=== PATIENT | female | born 1955 | race African-American/Black ===

== ENCOUNTER 2021-07-15 23:51 | Inpatient (IN) ==
[2021-07-16] MEDS ORDERED: SODIUM CHLORIDE 0.9% 1,000 ML IV STA (00:48)
[2021-07-16] MEDS ORDERED: GLUCAGON 1 MG VIAL IM PRN (01:18)
[2021-07-16] MEDS ORDERED: DEXTROSE 50% 25 GM/50 ML VIAL IV PRN ×2 (01:18→01:23)
[2021-07-16 01:29] LABS: Basophils % 0.2 % (0.0-0.8); Hematocrit 28.5 VOL% (35.7-47.0); Immature Granulocytes % 1.3 %; Immature Granulocytes Absolute 0.26 #; Lymphocytes # 1.3 10*3/uL (1.4-4.0); Lymphocytes % 6.4 % (21.3-54.2); Mean Corpuscular HGB Conc 31.6 GM/DL (32-36); Mean Corpuscular Volume 78.5 FL (87-102); Mean Platelet Volume 10.2 FL (9.6-12.0); Monocytes % 7.7 % (1.7-12.7); Neutrophils % 84.4 % (38.7-73.9); Platelet Count 314 T/CUMM (130-400); Red Blood Count 3.63 MC/CUMM (3.8-5.5); Red Cell Distribution Width 17.2 % (9.3-17.3); White Blood Count 20.6 T/CUMM (4-12)
[2021-07-16 01:47] LABS: Albumin 1.6 G/DL (3.4-5.0); Bilirubin,Total 0.6 MG/DL (0.20-1.00); Calcium 9.4 MG/DL (8.5-10.1); Osmolality,Calculated 318.8 MOS/KG (273-304); Potassium 4.3 MMOL/L (3.5-5.1); Total Protein 7.4 G/DL (6.4-8.2)
[2021-07-16 01:59] LABS: Hypochromasia Slight; Lymphocytes 8 % (20-55); Microcytosis 1+; Platelet Estimate Normal; Segmented Neutrophils 86 % (50-85); Total Cells Counted 100
[2021-07-16] MEDS: SODIUM CHLORIDE 0.9% 1,000 ML IV SCH ×2 (02:30→11:40)
[2021-07-16] MEDS ORDERED: VANCOMYCIN INJ 1,750 MG in SODIUM CHLORIDE 0.9% 500 ML IV PRN (02:51)
[2021-07-16] MEDS ORDERED: VANCOMYCIN INJ 1,000 MG in SODIUM CHLORIDE 0.9% 250 ML IV SCH (03:00)
[2021-07-16] MEDS ORDERED: VANCOMYCIN INJ 2,500 MG in SODIUM CHLORIDE 0.9% 500 ML IV ONE (04:00)
[2021-07-16] MEDS: PIPERACILLIN/TAZOBACTAM 3,375 MG in SODIUM CHLORIDE 0.9% 100 ML IV SCH ×2 (07:24→17:30)
[2021-07-16] MEDS: INSULIN REGULAR 100 UNIT/ML SUBCUT SCH ×4 (07:35→20:10)
[2021-07-16 09:22] LABS: Basophils % 0.2 % (0.0-0.8); Eosinophils # 0.1 10*3/uL (0.0-0.87); Eosinophils % 0.4 % (0.00-10.9); Hematocrit 28.5 VOL% (35.7-47.0); Hemoglobin 9.1 GM/DL (12.0-16.0); Immature Granulocytes % 1.6 %; Immature Granulocytes Absolute 0.29 #; Lymphocytes # 1.6 10*3/uL (1.4-4.0); Lymphocytes % 8.5 % (21.3-54.2); Mean Corpuscular HGB Conc 31.9 GM/DL (32-36); Mean Corpuscular Volume 78.5 FL (87-102); Monocytes % 10.4 % (1.7-12.7); Neutrophils % 78.9 % (38.7-73.9); Platelet Count 242 T/CUMM (130-400); Red Blood Count 3.63 MC/CUMM (3.8-5.5); Red Cell Distribution Width 17.1 % (9.3-17.3); White Blood Count 18.7 T/CUMM (4-12)
[2021-07-16] MEDS: ZINC GLUCONATE 50 MG TABLET PO SCH (09:30)
[2021-07-16] MEDS: CHOLECALCIFEROL 1,000 UNIT TABLET PO SCH (09:30)
[2021-07-16] MEDS: FAMOTIDINE 20 MG TABLET PO SCH ×2 (09:30→20:10)
[2021-07-16] MEDS: ASCORBIC ACID 500 MG TABLET PO SCH ×2 (09:30→20:10)
[2021-07-16] MEDS: CETIRIZINE 10 MG TABLET PO SCH (09:30)
[2021-07-16] MEDS ORDERED: TUBERCULIN SKIN TEST 0.1 ML SYRINGE INTRADERM ONE (10:54)
[2021-07-16] MEDS: DESITIN 4OZ/NYSTATIN 15 GRAM MIXTURE PASTE TOP SCH ×2 (13:34→20:10)
[2021-07-16 14:29] LABS: Ferritin 307.2 ng/mL (8-252)
[2021-07-16] MEDS: ENOXAPARIN 30 MG/0.3 ML SYRINGE SUBCUT SCH (17:29)
[2021-07-17] MEDS: MORPHINE 2 MG/1 ML SYRINGE IV PRN (02:06)
[2021-07-17] MEDS: PIPERACILLIN/TAZOBACTAM 3,375 MG in SODIUM CHLORIDE 0.9% 100 ML IV SCH ×2 (04:00→17:53)
[2021-07-17] MEDS: SODIUM CHLORIDE 0.9% 1,000 ML IV SCH ×2 (04:00→08:40)
[2021-07-17 05:17] LABS: Basophils % 0.2 % (0.0-0.8); Eosinophils # 0.3 10*3/uL (0.0-0.87); Eosinophils % 2.4 % (0.00-10.9); Hematocrit 23.8 VOL% (35.7-47.0); Hemoglobin 7.7 GM/DL (12.0-16.0); Immature Granulocytes % 2.1 %; Immature Granulocytes Absolute 0.25 #; Lymphocytes # 1.2 10*3/uL (1.4-4.0); Lymphocytes % 9.9 % (21.3-54.2); Mean Corpuscular HGB Conc 32.4 GM/DL (32-36); Mean Corpuscular Volume 78.3 FL (87-102); Mean Platelet Volume 10.1 FL (9.6-12.0); Monocytes % 8.7 % (1.7-12.7); Neutrophils % 76.7 % (38.7-73.9); Platelet Count 267 T/CUMM (130-400); Red Blood Count 3.04 MC/CUMM (3.8-5.5); Red Cell Distribution Width 17.2 % (9.3-17.3); White Blood Count 11.8 T/CUMM (4-12)
[2021-07-17] MEDS: INSULIN REGULAR 100 UNIT/ML SUBCUT SCH ×4 (07:24→20:18)
[2021-07-17] MEDS ORDERED: VANCOMYCIN INJ 1,750 MG in SODIUM CHLORIDE 0.9% 500 ML IV PRN (07:50)
[2021-07-17] MEDS: ZINC GLUCONATE 50 MG TABLET PO SCH (08:41)
[2021-07-17] MEDS: FAMOTIDINE 20 MG TABLET PO SCH ×2 (08:41→20:18)
[2021-07-17] MEDS: CHOLECALCIFEROL 1,000 UNIT TABLET PO SCH (08:41)
[2021-07-17] MEDS: ASCORBIC ACID 500 MG TABLET PO SCH ×2 (08:41→20:18)
[2021-07-17] MEDS: CETIRIZINE 10 MG TABLET PO SCH (08:41)
[2021-07-17] MEDS: DESITIN 4OZ/NYSTATIN 15 GRAM MIXTURE PASTE TOP SCH ×2 (08:41→20:18)
[2021-07-17] MEDS ORDERED: ACETAMINOPHEN 325 MG TABLET PO PRN (08:42)
[2021-07-17] MEDS ORDERED: MECLIZINE 25 MG TABLET PO PRN (08:42)
[2021-07-17] MEDS ORDERED: ONDANSETRON 4 MG/2 ML VIAL IV PRN (08:42)
[2021-07-17] MEDS ORDERED: diphenhydrAMINE 50 MG/1 ML VIAL IV PRN ×2 (08:42)
[2021-07-17] MEDS ORDERED: methylPREDNISolone SOD SUC 125 MG/2 ML VIAL IV PRN (08:42)
[2021-07-17 08:55] LABS: Albumin 1.3 G/DL (3.4-5.0); Bilirubin,Total 0.4 MG/DL (0.20-1.00); Calcium 8.2 MG/DL (8.5-10.1); Osmolality,Calculated 307.3 MOS/KG (273-304); Potassium 3.7 MMOL/L (3.5-5.1); Total Protein 6.4 G/DL (6.4-8.2)
[2021-07-17] MEDS ORDERED: CASIRIVIMAB/IMDEVIMAB 1,200 MG in SODIUM CHLORIDE 0.9% 100 ML IV ONE (09:00)
[2021-07-17 10:50] LABS: Amorphous Crystals,Urine Occasional /HPF (Few); Bilirubin,Urine Negative (Negative); Blood, Urine Negative (Negative); Glucose,Urine (UA) Negative (Negative); Ketones,Urine Negative (Negative); Nitrite,Urine Negative (Negative); Protein,Urine Negative; RBC,Urine <1 /HPF (0-4); Uric Acid Crystals,Urine Occasional /HPF (<1); Urine Appearance Slightly Hazy (Clear); Urine Color Yellow (Yellow); Urine Specific Gravity 1.014 (1.001-1.035); Urine Urobilinogen < 2.0 EU/DL (0.2-1.0)
[2021-07-17 11:30] LABS: Creatinine,Urine Random 50 MG/DL; Total Protein,Urine Random 55 MG/DL
[2021-07-17] MEDS: SODIUM BICARB INJ 50 MEQ in SODIUM CHLORIDE 0.45% 1,000 ML IV SCH (12:39)
[2021-07-17] MEDS: ENOXAPARIN 30 MG/0.3 ML SYRINGE SUBCUT SCH (17:52)
[2021-07-18] MEDS: SODIUM BICARB INJ 50 MEQ in SODIUM CHLORIDE 0.45% 1,000 ML IV SCH ×3 (03:54→21:10)
[2021-07-18] MEDS: PIPERACILLIN/TAZOBACTAM 3,375 MG in SODIUM CHLORIDE 0.9% 100 ML IV SCH ×3 (04:13→17:10)
[2021-07-18] MEDS ORDERED: VANCOMYCIN INJ 1,750 MG in SODIUM CHLORIDE 0.9% 500 ML IV ONE ×2 (05:00→10:00)
[2021-07-18 06:48] LABS: Basophils % 0.4 % (0.0-0.8); Eosinophils # 0.3 10*3/uL (0.0-0.87); Eosinophils % 3.3 % (0.00-10.9); Hemoglobin 7.3 GM/DL (12.0-16.0); Immature Granulocytes % 4.5 %; Immature Granulocytes Absolute 0.41 #; Lymphocytes # 1.4 10*3/uL (1.4-4.0); Mean Corpuscular HGB Conc 31.7 GM/DL (32-36); Mean Corpuscular Volume 79.6 FL (87-102); Monocytes % 9.5 % (1.7-12.7); Neutrophils % 67.3 % (38.7-73.9); Platelet Count 273 T/CUMM (130-400); Red Blood Count 2.89 MC/CUMM (3.8-5.5); Red Cell Distribution Width 17.6 % (9.3-17.3)
[2021-07-18 07:04] LABS: Calcium 7.5 MG/DL (8.5-10.1); Osmolality,Calculated 310.7 MOS/KG (273-304); Potassium 3.6 MMOL/L (3.5-5.1)
[2021-07-18 07:08] LABS: % Iron Saturation 19.6 % (18-50)
[2021-07-18] MEDS: INSULIN REGULAR 100 UNIT/ML SUBCUT SCH ×4 (07:30→20:31)
[2021-07-18] MEDS: ASCORBIC ACID 500 MG TABLET PO SCH ×2 (09:35→20:30)
[2021-07-18] MEDS: CETIRIZINE 10 MG TABLET PO SCH (09:35)
[2021-07-18] MEDS: CHOLECALCIFEROL 1,000 UNIT TABLET PO SCH (09:35)
[2021-07-18] MEDS: ZINC GLUCONATE 50 MG TABLET PO SCH (09:35)
[2021-07-18] MEDS: FAMOTIDINE 20 MG TABLET PO SCH ×2 (09:35→20:29)
[2021-07-18] MEDS: DESITIN 4OZ/NYSTATIN 15 GRAM MIXTURE PASTE TOP SCH ×2 (09:36→20:32)
[2021-07-18] MEDS ORDERED: SODIUM CHLORIDE 0.9% 1,000 ML IV PRN (09:45)
[2021-07-18] MEDS: MORPHINE 2 MG/1 ML SYRINGE IV PRN (14:47)
[2021-07-18] MEDS: ENOXAPARIN 30 MG/0.3 ML SYRINGE SUBCUT SCH (16:21)
[2021-07-19] MEDS: SODIUM BICARB INJ 50 MEQ in SODIUM CHLORIDE 0.45% 1,000 ML IV SCH ×3 (04:21→16:49)
[2021-07-19] MEDS: PIPERACILLIN/TAZOBACTAM 3,375 MG in SODIUM CHLORIDE 0.9% 100 ML IV SCH ×2 (04:22→16:38)
[2021-07-19] MEDS: MORPHINE 2 MG/1 ML SYRINGE IV PRN ×2 (04:50→14:30)
[2021-07-19 05:44] LABS: Basophils % 0.3 % (0.0-0.8); Eosinophils # 0.4 10*3/uL (0.0-0.87); Eosinophils % 3.4 % (0.00-10.9); Hematocrit 25.8 VOL% (35.7-47.0); Hemoglobin 8.2 GM/DL (12.0-16.0); Immature Granulocytes % 4.3 %; Immature Granulocytes Absolute 0.44 #; Lymphocytes # 1.9 10*3/uL (1.4-4.0); Lymphocytes % 18.4 % (21.3-54.2); Mean Corpuscular HGB Conc 31.8 GM/DL (32-36); Mean Corpuscular Volume 80.6 FL (87-102); Mean Platelet Volume 9.5 FL (9.6-12.0); Neutrophils % 63.6 % (38.7-73.9); Platelet Count 260 T/CUMM (130-400); Red Cell Distribution Width 17.3 % (9.3-17.3); White Blood Count 10.3 T/CUMM (4-12)
[2021-07-19 06:02] LABS: Calcium 7.3 MG/DL (8.5-10.1); Potassium 3.1 MMOL/L (3.5-5.1)
[2021-07-19] MEDS ORDERED: MAGNESIUM SULF RIDER 2 GM/50 ML PREMIX IV PRN (07:47)
[2021-07-19] MEDS: INSULIN REGULAR 100 UNIT/ML SUBCUT SCH ×4 (07:49→20:43)
[2021-07-19] MEDS: CETIRIZINE 10 MG TABLET PO SCH (08:36)
[2021-07-19] MEDS: CHOLECALCIFEROL 1,000 UNIT TABLET PO SCH (08:36)
[2021-07-19] MEDS: DESITIN 4OZ/NYSTATIN 15 GRAM MIXTURE PASTE TOP SCH ×2 (08:36→20:43)
[2021-07-19] MEDS: ASCORBIC ACID 500 MG TABLET PO SCH ×2 (08:36→20:43)
[2021-07-19] MEDS: ZINC GLUCONATE 50 MG TABLET PO SCH (08:36)
[2021-07-19] MEDS: FAMOTIDINE 20 MG TABLET PO SCH ×2 (08:36→20:43)
[2021-07-19] MEDS: ENOXAPARIN 30 MG/0.3 ML SYRINGE SUBCUT SCH (16:38)
[2021-07-19] MEDS: POTASSIUM CHLORIDE RIDER 10 MEQ/100 ML PREMIX IV PRN ×2 (20:54→23:52)
[2021-07-20] MEDS: POTASSIUM CHLORIDE RIDER 10 MEQ/100 ML PREMIX IV PRN (01:01)
[2021-07-20] MEDS: SODIUM BICARB INJ 50 MEQ in SODIUM CHLORIDE 0.45% 1,000 ML IV SCH ×3 (01:30→22:30)
[2021-07-20] MEDS: MAGNESIUM SULF RIDER 4 GM/100 ML PREMIX IV PRN (02:31)
[2021-07-20 06:27] LABS: Basophils % 0.3 % (0.0-0.8); Eosinophils # 0.4 10*3/uL (0.0-0.87); Eosinophils % 3.4 % (0.00-10.9); Hematocrit 26.5 VOL% (35.7-47.0); Hemoglobin 8.2 GM/DL (12.0-16.0); Immature Granulocytes % 4.4 %; Immature Granulocytes Absolute 0.47 #; Lymphocytes # 2.1 10*3/uL (1.4-4.0); Lymphocytes % 19.3 % (21.3-54.2); Mean Corpuscular HGB Conc 30.9 GM/DL (32-36); Mean Corpuscular Volume 81.5 FL (87-102); Mean Platelet Volume 9.2 FL (9.6-12.0); Monocytes % 10.1 % (1.7-12.7); Neutrophils % 62.5 % (38.7-73.9); Platelet Count 252 T/CUMM (130-400); Red Blood Count 3.25 MC/CUMM (3.8-5.5); Red Cell Distribution Width 17.3 % (9.3-17.3); White Blood Count 10.7 T/CUMM (4-12)
[2021-07-20 06:38] LABS: Calcium 7.5 MG/DL (8.5-10.1); Osmolality,Calculated 285.3 MOS/KG (273-304); Potassium 3.9 MMOL/L (3.5-5.1)
[2021-07-20] MEDS: PIPERACILLIN/TAZOBACTAM 3,375 MG in SODIUM CHLORIDE 0.9% 100 ML IV SCH (07:03)
[2021-07-20] MEDS: INSULIN REGULAR 100 UNIT/ML SUBCUT SCH ×4 (07:52→20:25)
[2021-07-20] MEDS: FAMOTIDINE 20 MG TABLET PO SCH ×2 (09:35→20:24)
[2021-07-20] MEDS: CETIRIZINE 10 MG TABLET PO SCH (09:35)
[2021-07-20] MEDS: DESITIN 4OZ/NYSTATIN 15 GRAM MIXTURE PASTE TOP SCH ×2 (09:35→20:25)
[2021-07-20] MEDS: CHOLECALCIFEROL 1,000 UNIT TABLET PO SCH (09:35)
[2021-07-20] MEDS: ASCORBIC ACID 500 MG TABLET PO SCH ×2 (09:35→20:24)
[2021-07-20] MEDS: ZINC GLUCONATE 50 MG TABLET PO SCH (09:35)
[2021-07-20] MEDS: MORPHINE 2 MG/1 ML SYRINGE IV PRN (15:01)
[2021-07-20] MEDS: LEVOFLOXACIN 500 MG TABLET PO SCH (15:01)
[2021-07-20] MEDS: ENOXAPARIN 30 MG/0.3 ML SYRINGE SUBCUT SCH (16:14)
[2021-07-20] MEDS ORDERED: PIPERACILLIN/TAZOBACTAM 3,375 MG in SODIUM CHLORIDE 0.9% 100 ML IV SCH (17:00)
[2021-07-20] MEDS ORDERED: VANCOMYCIN INJ 1,750 MG in SODIUM CHLORIDE 0.9% 500 ML IV SCH (21:00)
[2021-07-21 07:15] LABS: Basophils % 0.3 % (0.0-0.8); Eosinophils # 0.3 10*3/uL (0.0-0.87); Eosinophils % 3.2 % (0.00-10.9); Hematocrit 28.1 VOL% (35.7-47.0); Hemoglobin 8.6 GM/DL (12.0-16.0); Immature Granulocytes % 5.3 %; Lymphocytes # 2.4 10*3/uL (1.4-4.0); Lymphocytes % 25.8 % (21.3-54.2); Mean Corpuscular HGB Conc 30.6 GM/DL (32-36); Mean Corpuscular Volume 83.1 FL (87-102); Mean Platelet Volume 9.3 FL (9.6-12.0); Monocytes % 11.3 % (1.7-12.7); NRBC # 0.02 10*3/uL; Neutrophils % 54.1 % (38.7-73.9); Platelet Count 255 T/CUMM (130-400); Red Blood Count 3.38 MC/CUMM (3.8-5.5); Red Cell Distribution Width 17.6 % (9.3-17.3); White Blood Count 9.4 T/CUMM (4-12)
[2021-07-21 07:42] LABS: Calcium 7.6 MG/DL (8.5-10.1); Osmolality,Calculated 280.5 MOS/KG (273-304); Potassium 3.8 MMOL/L (3.5-5.1)
[2021-07-21] MEDS: INSULIN REGULAR 100 UNIT/ML SUBCUT SCH ×4 (07:51→20:19)
[2021-07-21 07:57] LABS: Band Neutrophils 2 % (0-10); Eosinophils 1 % (0-10); Hypochromasia 1+; Lymphocytes 30 % (20-55); Microcytosis 1+; Segmented Neutrophils 61 % (50-85); Total Cells Counted 100
[2021-07-21 07:58] LABS: Platelet Estimate Normal; Target Cells Slight
[2021-07-21] MEDS: FAMOTIDINE 20 MG TABLET PO SCH ×2 (08:40→20:19)
[2021-07-21] MEDS: CHOLECALCIFEROL 1,000 UNIT TABLET PO SCH (08:40)
[2021-07-21] MEDS: LEVOFLOXACIN 500 MG TABLET PO SCH (08:40)
[2021-07-21] MEDS: ASCORBIC ACID 500 MG TABLET PO SCH ×2 (08:40→20:19)
[2021-07-21] MEDS: CETIRIZINE 10 MG TABLET PO SCH (08:40)
[2021-07-21] MEDS: ZINC GLUCONATE 50 MG TABLET PO SCH (08:41)
[2021-07-21] MEDS: SODIUM BICARB INJ 50 MEQ in SODIUM CHLORIDE 0.45% 1,000 ML IV SCH (08:41)
[2021-07-21] MEDS: DESITIN 4OZ/NYSTATIN 15 GRAM MIXTURE PASTE TOP SCH ×2 (08:41→20:19)
[2021-07-21] MEDS: MORPHINE 2 MG/1 ML SYRINGE IV PRN (14:30)
[2021-07-21] MEDS: ENOXAPARIN 30 MG/0.3 ML SYRINGE SUBCUT SCH (15:56)
[2021-07-22] MEDS: ASCORBIC ACID 500 MG TABLET PO SCH ×2 (09:06→20:15)
[2021-07-22] MEDS: FAMOTIDINE 20 MG TABLET PO SCH ×2 (09:07→20:15)
[2021-07-22] MEDS: LEVOFLOXACIN 500 MG TABLET PO SCH (09:07)
[2021-07-22] MEDS: CHOLECALCIFEROL 1,000 UNIT TABLET PO SCH (09:07)
[2021-07-22] MEDS: ZINC GLUCONATE 50 MG TABLET PO SCH (09:07)
[2021-07-22] MEDS: CETIRIZINE 10 MG TABLET PO SCH (09:07)
[2021-07-22] MEDS: INSULIN REGULAR 100 UNIT/ML SUBCUT SCH ×4 (09:08→20:15)
[2021-07-22] MEDS: DESITIN 4OZ/NYSTATIN 15 GRAM MIXTURE PASTE TOP SCH ×2 (12:18→20:15)
[2021-07-22] MEDS: MORPHINE 2 MG/1 ML SYRINGE IV PRN (14:38)
[2021-07-22] MEDS: ENOXAPARIN 30 MG/0.3 ML SYRINGE SUBCUT SCH (18:47)
[2021-07-23 05:53] LABS: Basophils % 0.4 % (0.0-0.8); Eosinophils # 0.3 10*3/uL (0.0-0.87); Eosinophils % 3.5 % (0.00-10.9); Hematocrit 25.9 VOL% (35.7-47.0); Hemoglobin 8.1 GM/DL (12.0-16.0); Immature Granulocytes % 3.6 %; Immature Granulocytes Absolute 0.29 #; Mean Corpuscular HGB Conc 31.3 GM/DL (32-36); Mean Corpuscular Volume 81.7 FL (87-102); Mean Platelet Volume 9.5 FL (9.6-12.0); Monocytes % 11.1 % (1.7-12.7); Neutrophils % 56.4 % (38.7-73.9); Platelet Count 238 T/CUMM (130-400); Red Blood Count 3.17 MC/CUMM (3.8-5.5); Red Cell Distribution Width 17.5 % (9.3-17.3)
[2021-07-23 06:14] LABS: Calcium 7.7 MG/DL (8.5-10.1); Osmolality,Calculated 285.1 MOS/KG (273-304); Potassium 3.6 MMOL/L (3.5-5.1)
[2021-07-23] MEDS: INSULIN REGULAR 100 UNIT/ML SUBCUT SCH ×4 (07:14→20:48)
[2021-07-23] MEDS: MORPHINE 2 MG/1 ML SYRINGE IV PRN (08:30)
[2021-07-23] MEDS: DESITIN 4OZ/NYSTATIN 15 GRAM MIXTURE PASTE TOP SCH ×2 (08:30→20:48)
[2021-07-23] MEDS: LEVOFLOXACIN 500 MG TABLET PO SCH (08:30)
[2021-07-23] MEDS: FAMOTIDINE 20 MG TABLET PO SCH ×2 (08:30→20:48)
[2021-07-23] MEDS: ASCORBIC ACID 500 MG TABLET PO SCH ×2 (08:30→20:48)
[2021-07-23] MEDS: ZINC GLUCONATE 50 MG TABLET PO SCH (08:31)
[2021-07-23] MEDS: CHOLECALCIFEROL 1,000 UNIT TABLET PO SCH (08:31)
[2021-07-23] MEDS: CETIRIZINE 10 MG TABLET PO SCH (08:31)
[2021-07-23] MEDS: ENOXAPARIN 30 MG/0.3 ML SYRINGE SUBCUT SCH (17:06)
[2021-07-24 05:09] LABS: Basophils % 0.4 % (0.0-0.8); Eosinophils # 0.3 10*3/uL (0.0-0.87); Eosinophils % 3.3 % (0.00-10.9); Hematocrit 27.4 VOL% (35.7-47.0); Hemoglobin 8.6 GM/DL (12.0-16.0); Immature Granulocytes % 2.1 %; Immature Granulocytes Absolute 0.17 #; Lymphocytes # 1.7 10*3/uL (1.4-4.0); Lymphocytes % 21.4 % (21.3-54.2); Mean Corpuscular HGB Conc 31.4 GM/DL (32-36); Mean Corpuscular Volume 81.5 FL (87-102); Mean Platelet Volume 9.3 FL (9.6-12.0); Monocytes % 9.4 % (1.7-12.7); Neutrophils % 63.4 % (38.7-73.9); Platelet Count 237 T/CUMM (130-400); Red Blood Count 3.36 MC/CUMM (3.8-5.5); White Blood Count 8.1 T/CUMM (4-12)
[2021-07-24 05:35] LABS: Calcium 7.7 MG/DL (8.5-10.1); Osmolality,Calculated 280.3 MOS/KG (273-304); Potassium 3.4 MMOL/L (3.5-5.1)
[2021-07-24] MEDS: POTASSIUM CHLORIDE RIDER 10 MEQ/100 ML PREMIX IV PRN ×3 (06:35→10:39)
[2021-07-24] MEDS: INSULIN REGULAR 100 UNIT/ML SUBCUT SCH ×4 (07:12→20:15)
[2021-07-24] MEDS: FAMOTIDINE 20 MG TABLET PO SCH ×2 (09:08→20:15)
[2021-07-24] MEDS: ASCORBIC ACID 500 MG TABLET PO SCH ×2 (09:08→20:15)
[2021-07-24] MEDS: DESITIN 4OZ/NYSTATIN 15 GRAM MIXTURE PASTE TOP SCH ×2 (09:08→20:15)
[2021-07-24] MEDS: LEVOFLOXACIN 500 MG TABLET PO SCH (09:08)
[2021-07-24] MEDS: ZINC GLUCONATE 50 MG TABLET PO SCH (09:09)
[2021-07-24] MEDS: CHOLECALCIFEROL 1,000 UNIT TABLET PO SCH (09:09)
[2021-07-24] MEDS: CETIRIZINE 10 MG TABLET PO SCH (09:09)
[2021-07-24] MEDS: MORPHINE 2 MG/1 ML SYRINGE IV PRN (15:00)
[2021-07-24] MEDS: ENOXAPARIN 30 MG/0.3 ML SYRINGE SUBCUT SCH (17:28)
[2021-07-25] MEDS: INSULIN REGULAR 100 UNIT/ML SUBCUT SCH ×4 (07:33→20:16)
[2021-07-25] MEDS: FAMOTIDINE 20 MG TABLET PO SCH ×2 (09:00→20:17)
[2021-07-25] MEDS: ZINC GLUCONATE 50 MG TABLET PO SCH (09:00)
[2021-07-25] MEDS: ASCORBIC ACID 500 MG TABLET PO SCH ×2 (09:00→20:17)
[2021-07-25] MEDS: LEVOFLOXACIN 500 MG TABLET PO SCH (09:01)
[2021-07-25] MEDS: CETIRIZINE 10 MG TABLET PO SCH (09:01)
[2021-07-25] MEDS: CHOLECALCIFEROL 1,000 UNIT TABLET PO SCH (09:01)
[2021-07-25] MEDS: DESITIN 4OZ/NYSTATIN 15 GRAM MIXTURE PASTE TOP SCH ×2 (09:01→20:17)
[2021-07-25] MEDS: ENOXAPARIN 30 MG/0.3 ML SYRINGE SUBCUT SCH (16:05)
[2021-07-26 04:40] LABS: Basophils % 0.4 % (0.0-0.8); Eosinophils # 0.3 10*3/uL (0.0-0.87); Eosinophils % 2.7 % (0.00-10.9); Hematocrit 25.6 VOL% (35.7-47.0); Hemoglobin 8.1 GM/DL (12.0-16.0); Immature Granulocytes % 0.7 %; Immature Granulocytes Absolute 0.07 #; Lymphocytes # 2.3 10*3/uL (1.4-4.0); Lymphocytes % 22.4 % (21.3-54.2); Mean Corpuscular HGB Conc 31.6 GM/DL (32-36); Mean Corpuscular Volume 81.5 FL (87-102); Mean Platelet Volume 9.1 FL (9.6-12.0); Monocytes % 10.4 % (1.7-12.7); Neutrophils % 63.4 % (38.7-73.9); Platelet Count 256 T/CUMM (130-400); Red Blood Count 3.14 MC/CUMM (3.8-5.5); Red Cell Distribution Width 18.1 % (9.3-17.3); White Blood Count 10.2 T/CUMM (4-12)
[2021-07-26 05:16] LABS: Calcium 7.7 MG/DL (8.5-10.1); Osmolality,Calculated 279.5 MOS/KG (273-304); Potassium 3.2 MMOL/L (3.5-5.1)
[2021-07-26] MEDS: MAGNESIUM SULF RIDER 4 GM/100 ML PREMIX IV PRN (05:30)
[2021-07-26] MEDS: POTASSIUM CHLORIDE 20 MEQ TABLET PO PRN ×4 (05:48→11:58)
[2021-07-26] MEDS: INSULIN REGULAR 100 UNIT/ML SUBCUT SCH ×4 (07:30→20:03)
[2021-07-26] MEDS: ASCORBIC ACID 500 MG TABLET PO SCH ×2 (08:05→20:03)
[2021-07-26] MEDS: CHOLECALCIFEROL 1,000 UNIT TABLET PO SCH (08:05)
[2021-07-26] MEDS: ZINC GLUCONATE 50 MG TABLET PO SCH (08:05)
[2021-07-26] MEDS: LEVOFLOXACIN 500 MG TABLET PO SCH (08:05)
[2021-07-26] MEDS: CETIRIZINE 10 MG TABLET PO SCH (08:06)
[2021-07-26] MEDS: FAMOTIDINE 20 MG TABLET PO SCH ×2 (08:06→20:03)
[2021-07-26] MEDS: DESITIN 4OZ/NYSTATIN 15 GRAM MIXTURE PASTE TOP SCH ×2 (08:07→20:03)
[2021-07-26] MEDS: ENOXAPARIN 30 MG/0.3 ML SYRINGE SUBCUT SCH (16:00)
[2021-07-26 17:23] LABS: Calcium 7.9 MG/DL (8.5-10.1); Osmolality,Calculated 277.7 MOS/KG (273-304)
[2021-07-27 04:19] LABS: Basophils % 0.2 % (0.0-0.8); Eosinophils # 0.3 10*3/uL (0.0-0.87); Hematocrit 27.2 VOL% (35.7-47.0); Hemoglobin 8.2 GM/DL (12.0-16.0); Immature Granulocytes % 0.9 %; Immature Granulocytes Absolute 0.08 #; Lymphocytes # 1.9 10*3/uL (1.4-4.0); Lymphocytes % 21.9 % (21.3-54.2); Mean Corpuscular HGB Conc 30.1 GM/DL (32-36); Mean Corpuscular Volume 82.7 FL (87-102); Monocytes % 11.8 % (1.7-12.7); Neutrophils % 62.2 % (38.7-73.9); Platelet Count 271 T/CUMM (130-400); Red Blood Count 3.29 MC/CUMM (3.8-5.5); Red Cell Distribution Width 18.1 % (9.3-17.3); White Blood Count 8.7 T/CUMM (4-12)
[2021-07-27] MEDS: INSULIN REGULAR 100 UNIT/ML SUBCUT SCH ×4 (07:34→21:15)
[2021-07-27] MEDS: ZINC GLUCONATE 50 MG TABLET PO SCH (08:50)
[2021-07-27] MEDS: DESITIN 4OZ/NYSTATIN 15 GRAM MIXTURE PASTE TOP SCH ×2 (08:50→21:16)
[2021-07-27] MEDS: CHOLECALCIFEROL 1,000 UNIT TABLET PO SCH (08:50)
[2021-07-27] MEDS: LEVOFLOXACIN 500 MG TABLET PO SCH (08:50)
[2021-07-27] MEDS: CETIRIZINE 10 MG TABLET PO SCH (08:50)
[2021-07-27] MEDS: ASCORBIC ACID 500 MG TABLET PO SCH ×2 (08:50→21:16)
[2021-07-27] MEDS: FAMOTIDINE 20 MG TABLET PO SCH ×2 (08:50→21:16)
[2021-07-27] MEDS: ENOXAPARIN 30 MG/0.3 ML SYRINGE SUBCUT SCH (16:18)
[2021-07-27] MEDS: MORPHINE 2 MG/1 ML SYRINGE IV PRN (16:18)
[2021-07-28 06:15] LABS: Basophils % 0.4 % (0.0-0.8); Eosinophils # 0.2 10*3/uL (0.0-0.87); Eosinophils % 2.6 % (0.00-10.9); Hematocrit 26.6 VOL% (35.7-47.0); Immature Granulocytes % 0.7 %; Immature Granulocytes Absolute 0.06 #; Lymphocytes # 1.8 10*3/uL (1.4-4.0); Lymphocytes % 20.9 % (21.3-54.2); Mean Corpuscular HGB Conc 30.1 GM/DL (32-36); Mean Corpuscular Volume 82.4 FL (87-102); Mean Platelet Volume 10.7 FL (9.6-12.0); Monocytes % 11.5 % (1.7-12.7); Neutrophils % 63.9 % (38.7-73.9); Platelet Count 233 T/CUMM (130-400); Red Blood Count 3.23 MC/CUMM (3.8-5.5); Red Cell Distribution Width 18.2 % (9.3-17.3); White Blood Count 8.4 T/CUMM (4-12)
[2021-07-28 06:31] LABS: Calcium 8.2 MG/DL (8.5-10.1); Osmolality,Calculated 276.7 MOS/KG (273-304); Potassium 4.1 MMOL/L (3.5-5.1)
[2021-07-28] MEDS: INSULIN REGULAR 100 UNIT/ML SUBCUT SCH ×4 (08:02→20:13)
[2021-07-28] MEDS: CETIRIZINE 10 MG TABLET PO SCH (08:34)
[2021-07-28] MEDS: ASCORBIC ACID 500 MG TABLET PO SCH ×2 (08:34→20:13)
[2021-07-28] MEDS: DESITIN 4OZ/NYSTATIN 15 GRAM MIXTURE PASTE TOP SCH ×2 (08:34→20:13)
[2021-07-28] MEDS: ZINC GLUCONATE 50 MG TABLET PO SCH (08:34)
[2021-07-28] MEDS: FAMOTIDINE 20 MG TABLET PO SCH ×2 (08:34→20:13)
[2021-07-28] MEDS: CHOLECALCIFEROL 1,000 UNIT TABLET PO SCH (08:34)
[2021-07-28] MEDS: MORPHINE 2 MG/1 ML SYRINGE IV PRN (15:30)
[2021-07-28] MEDS: ENOXAPARIN 30 MG/0.3 ML SYRINGE SUBCUT SCH (17:26)
[2021-07-29] MEDS: INSULIN REGULAR 100 UNIT/ML SUBCUT SCH ×2 (07:18→12:15)
[2021-07-29] MEDS: FAMOTIDINE 20 MG TABLET PO SCH (08:24)
[2021-07-29] MEDS: DESITIN 4OZ/NYSTATIN 15 GRAM MIXTURE PASTE TOP SCH (08:24)
[2021-07-29] MEDS: ASCORBIC ACID 500 MG TABLET PO SCH (08:25)
[2021-07-29] MEDS: CHOLECALCIFEROL 1,000 UNIT TABLET PO SCH (08:25)
[2021-07-29] MEDS: CETIRIZINE 10 MG TABLET PO SCH (08:25)
[2021-07-29] MEDS: ZINC GLUCONATE 50 MG TABLET PO SCH (08:25)
[2021-07-29 14:06] VITALS: BP 130/84
== END 2021-07-29 14:20 | DRG 682 ==
LOC: N.ED 23:51 → N.EDINP 07-16 01:18 → SUATTDRO 07-16 01:18 → N.2E 07-16 02:22
PROVIDERS: ADMIT Internal Medicine; ATTEND Internal Medicine

== ENCOUNTER 2022-02-25 11:57 | Inpatient (IN) ==
[2022-02-25] MEDS ORDERED: SODIUM CHLORIDE 0.9% 1,000 ML IV STA (12:54)
[2022-02-25 13:49] LABS: RBC,Urine 1 /HPF (0-4); Squamous Epithelial Cell,Urine Occasional /HPF (0-10)
[2022-02-25 13:51] LABS: Urine Appearance Slightly Cloudy (Clear); Urine Color Yellow (Yellow)
[2022-02-25 13:52] LABS: Bilirubin,Urine Negative (Negative); Blood, Urine Large mg/dL (Negative); Glucose,Urine (UA) Negative (Negative); Ketones,Urine Trace mg/dL (Negative); Nitrite,Urine Negative (Negative); Protein,Urine >=300 mg/dL (Negative); Urine Urobilinogen 0.2 eU/dL (<2.0)
[2022-02-25 14:01] LABS: Albumin 1.1 G/DL (3.4-5.0); Bilirubin,Total 0.4 MG/DL (0.20-1.00); Calcium 8.2 MG/DL (8.5-10.1); Osmolality,Calculated 279.5 MOS/KG (273-304); Total Protein 6.9 G/DL (6.4-8.2)
[2022-02-25 14:26] LABS: Basophils % 0.2 % (0.0-0.8); Eosinophils % 0.2 % (0.00-10.9); Hematocrit 31.3 VOL% (35.7-47.0); Immature Granulocytes % 0.9 %; Immature Granulocytes Absolute 0.17 #; Lymphocytes # 2.4 10*3/uL (1.4-4.0); Lymphocytes % 12.2 % (21.3-54.2); Mean Corpuscular HGB Conc 31.9 GM/DL (32-36); Mean Corpuscular Volume 86.2 FL (87-102); Mean Platelet Volume 9.1 FL (9.6-12.0); Monocytes # 1.6 10*3/uL (0.11-0.8); Monocytes % 8.2 % (1.7-12.7); Neutrophils % 78.3 % (38.7-73.9); Platelet Count 367 T/CUMM (130-400); Red Blood Count 3.63 MC/CUMM (3.8-5.5); Red Cell Distribution Width 17.6 % (9.3-17.3); White Blood Count 19.4 T/CUMM (4-12)
[2022-02-25] MEDS ORDERED: GLUCAGON 1 MG VIAL IM PRN (16:01)
[2022-02-25] MEDS ORDERED: ONDANSETRON 4 MG/2 ML VIAL IV PRN (16:01)
[2022-02-25] MEDS ORDERED: VANCOMYCIN INJ 1,250 MG in SODIUM CHLORIDE 0.9% 250 ML IV SCH (16:30)
[2022-02-25] MEDS ORDERED: DEXTROSE 10% 250 ML BAG IV PRN (16:37)
[2022-02-25 16:43] LABS: Thyroid Stimulating Hormone 1.5 uIU/ml (0.358-3.74)
[2022-02-25] MEDS ORDERED: cefTRIAXone 2,000 MG in SODIUM CHLORIDE 0.9% 100 ML IV SCH (17:00)
[2022-02-25] MEDS ORDERED: metroNIDAZOLE INJ 500 MG/100 ML PREMIX IV SCH (17:00)
[2022-02-25] MEDS: LACTATED RINGERS 1,000 ML IV SCH (17:05)
[2022-02-25] MEDS: HEPARIN 5,000 UNIT/1 ML VIAL SUBCUT SCH (17:06)
[2022-02-25] MEDS: VANCOMYCIN INJ 1,500 MG in SODIUM CHLORIDE 0.9% 500 ML IV SCH (18:02)
[2022-02-25] MEDS: INSULIN LISPRO 100 UNIT/ML SUBCUT SCH ×2 (18:05→23:57)
[2022-02-25] MEDS: CEFEPIME 1,000 MG in SODIUM CHLORIDE 0.9% 100 ML IV SCH ×2 (18:05→23:03)
[2022-02-25] MEDS: DOCUSATE SODIUM 100 MG CAPSULE PO SCH (21:52)
[2022-02-26] MEDS: LACTATED RINGERS 1,000 ML IV SCH ×3 (02:11→22:17)
[2022-02-26] MEDS: CEFEPIME 1,000 MG in SODIUM CHLORIDE 0.9% 100 ML IV SCH ×4 (05:04→22:16)
[2022-02-26] MEDS: HEPARIN 5,000 UNIT/1 ML VIAL SUBCUT SCH (05:07)
[2022-02-26] MEDS: INSULIN LISPRO 100 UNIT/ML SUBCUT SCH ×3 (05:42→19:08)
[2022-02-26] MEDS ORDERED: LACTATED RINGERS 250 ML IV ONE (08:07)
[2022-02-26 08:46] LABS: Osmolality,Calculated 273.8 MOS/KG (273-304)
[2022-02-26 08:47] LABS: Potassium 4.1 MMOL/L (3.5-5.1)
[2022-02-26 11:13] LABS: Basophils # 0.1 10*3/uL (0.0-0.2); Basophils % 0.2 % (0.0-0.8); Hematocrit 28.6 VOL% (35.7-47.0); Hemoglobin 9.4 GM/DL (12.0-16.0); Immature Granulocytes % 0.9 %; Immature Granulocytes Absolute 0.27 #; Lymphocytes # 2.8 10*3/uL (1.4-4.0); Lymphocytes % 9.6 % (21.3-54.2); Mean Corpuscular HGB Conc 32.9 GM/DL (32-36); Mean Corpuscular Volume 84.9 FL (87-102); Monocytes # 2.2 10*3/uL (0.11-0.8); Monocytes % 7.4 % (1.7-12.7); Neutrophils % 81.9 % (38.7-73.9); Platelet Count 354 T/CUMM (130-400); Red Blood Count 3.37 MC/CUMM (3.8-5.5); Red Cell Distribution Width 17.8 % (9.3-17.3); White Blood Count 29.4 T/CUMM (4-12)
[2022-02-26] MEDS: DOCUSATE SODIUM 100 MG CAPSULE PO SCH ×3 (13:22→21:37)
[2022-02-26] MEDS ORDERED: MAGNESIUM SULF INJ 3 GM in SODIUM CHLORIDE 0.9% 100 ML IV ONE (15:00)
[2022-02-26] MEDS ORDERED: LIDOCAINE 2%/EPI 20 ML VIAL ONE (15:46)
[2022-02-26 17:17] LABS: Lymphocytes 5 % (20-55); Total Cells Counted 100
[2022-02-26 17:18] LABS: Burr Cells Few; Hypochromia 1+; Ovalocytes Slight
[2022-02-26 17:19] LABS: Platelet Estimate Normal
[2022-02-26] MEDS: PANTOPRAZOLE 40 MG TABLET PO SCH (18:17)
[2022-02-26] MEDS: VANCOMYCIN INJ 1,500 MG in SODIUM CHLORIDE 0.9% 500 ML IV SCH (18:18)
[2022-02-26] MEDS: SODIUM BICARBONATE 650 MG TABLET PO SCH ×2 (21:32→21:38)
[2022-02-26] MEDS: APIXABAN 2.5 MG TABLET PO SCH ×2 (21:32→21:38)
[2022-02-27] MEDS: INSULIN LISPRO 100 UNIT/ML SUBCUT SCH ×4 (01:03→19:24)
[2022-02-27] MEDS: CEFEPIME 1,000 MG in SODIUM CHLORIDE 0.9% 100 ML IV SCH ×4 (04:31→22:15)
[2022-02-27 06:32] LABS: Basophils # 0.1 10*3/uL (0.0-0.2); Basophils % 0.2 % (0.0-0.8); Eosinophils # 0.1 10*3/uL (0.0-0.87); Eosinophils % 0.3 % (0.00-10.9); Hematocrit 28.4 VOL% (35.7-47.0); Hemoglobin 8.8 GM/DL (12.0-16.0); Immature Granulocytes % 1.2 %; Immature Granulocytes Absolute 0.33 #; Lymphocytes # 3.1 10*3/uL (1.4-4.0); Lymphocytes % 11.6 % (21.3-54.2); Mean Corpuscular Volume 89.9 FL (87-102); Mean Platelet Volume 9.5 FL (9.6-12.0); Monocytes # 2.1 10*3/uL (0.11-0.8); Monocytes % 7.8 % (1.7-12.7); Neutrophils % 78.9 % (38.7-73.9); Platelet Count 341 T/CUMM (130-400); Red Blood Count 3.16 MC/CUMM (3.8-5.5); Red Cell Distribution Width 17.9 % (9.3-17.3); White Blood Count 26.8 T/CUMM (4-12)
[2022-02-27 06:52] LABS: Calcium 7.3 MG/DL (8.5-10.1); Osmolality,Calculated 289.7 MOS/KG (273-304); Potassium 3.4 MMOL/L (3.5-5.1)
[2022-02-27 06:54] LABS: Risk Ratio 2.9
[2022-02-27 07:12] LABS: Anisocytosis 1+; Band Neutrophils 6 % (0-10); Burr Cells Few; Lymphocytes 8 % (20-55); Platelet Estimate Normal; Total Cells Counted 100
[2022-02-27 07:13] LABS: Smudge Cells Few
[2022-02-27] MEDS ORDERED: POTASSIUM CHLORIDE 20 MEQ TABLET PO ONE (08:23)
[2022-02-27] MEDS: SODIUM BICARBONATE 650 MG TABLET PO SCH ×2 (10:38→20:57)
[2022-02-27] MEDS: PANTOPRAZOLE 40 MG TABLET PO SCH (10:38)
[2022-02-27] MEDS: APIXABAN 2.5 MG TABLET PO SCH ×2 (10:38→20:57)
[2022-02-27] MEDS: ASPIRIN CHEW 81 MG TABLET PO SCH (10:38)
[2022-02-27] MEDS: LACTATED RINGERS 1,000 ML IV SCH ×2 (10:39→21:33)
[2022-02-27] MEDS: DOCUSATE SODIUM 100 MG CAPSULE PO SCH ×2 (10:59→20:57)
[2022-02-27] MEDS: VANCOMYCIN INJ 1,500 MG in SODIUM CHLORIDE 0.9% 500 ML IV SCH (17:55)
[2022-02-27] MEDS: metroNIDAZOLE 500 MG TABLET PO SCH (21:05)
[2022-02-28] MEDS: INSULIN LISPRO 100 UNIT/ML SUBCUT SCH ×4 (00:01→19:48)
[2022-02-28] MEDS: CEFEPIME 1,000 MG in SODIUM CHLORIDE 0.9% 100 ML IV SCH ×2 (04:26→11:06)
[2022-02-28] MEDS: metroNIDAZOLE 500 MG TABLET PO SCH (05:06)
[2022-02-28] MEDS: LACTATED RINGERS 1,000 ML IV SCH (05:07)
[2022-02-28 06:15] LABS: Basophils % 0.2 % (0.0-0.8); Eosinophils # 0.3 10*3/uL (0.0-0.87); Eosinophils % 1.4 % (0.00-10.9); Hematocrit 26.9 VOL% (35.7-47.0); Hemoglobin 8.3 GM/DL (12.0-16.0); Immature Granulocytes Absolute 0.21 #; Lymphocytes # 2.9 10*3/uL (1.4-4.0); Lymphocytes % 13.9 % (21.3-54.2); Mean Corpuscular HGB Conc 30.9 GM/DL (32-36); Mean Corpuscular Volume 88.8 FL (87-102); Mean Platelet Volume 9.5 FL (9.6-12.0); Monocytes # 1.5 10*3/uL (0.11-0.8); Monocytes % 7.1 % (1.7-12.7); Neutrophils % 76.4 % (38.7-73.9); Platelet Count 272 T/CUMM (130-400); Red Blood Count 3.03 MC/CUMM (3.8-5.5); Red Cell Distribution Width 17.6 % (9.3-17.3); White Blood Count 21.1 T/CUMM (4-12)
[2022-02-28 06:29] LABS: Calcium 7.5 MG/DL (8.5-10.1); Osmolality,Calculated 295.4 MOS/KG (273-304); Potassium 3.4 MMOL/L (3.5-5.1)
[2022-02-28 07:00] LABS: Anisocytosis 2+; Band Neutrophils 10 % (0-10); Eosinophils 3 % (0-10); Lymphocytes 11 % (20-55); Ovalocytes Few; Platelet Estimate Normal; Poikilocytosis 1+; Smudge Cells Few; Target Cells Few; Total Cells Counted 100
[2022-02-28 07:01] LABS: Burr Cells 2+
[2022-02-28] MEDS ORDERED: POTASSIUM CHLORIDE 20 MEQ TABLET PO ONE (07:48)
[2022-02-28] MEDS: DOCUSATE SODIUM 100 MG CAPSULE PO SCH ×2 (10:57→21:18)
[2022-02-28] MEDS: APIXABAN 2.5 MG TABLET PO SCH ×2 (10:57→21:18)
[2022-02-28] MEDS: PANTOPRAZOLE 40 MG TABLET PO SCH (10:57)
[2022-02-28] MEDS: ASPIRIN CHEW 81 MG TABLET PO SCH (11:05)
[2022-02-28] MEDS: DEXTROSE 5% 1,000 ML IV SCH ×2 (13:57→23:19)
[2022-02-28] MEDS ORDERED: ERTAPENEM 1,000 MG in SODIUM CHLORIDE 0.9% 100 ML IV SCH (15:00)
[2022-02-28] MEDS ORDERED: DEXTROSE 5% NACL 0.9% 1,000 ML IV SCH (16:30)
[2022-02-28] MEDS: carvediloL 3.125 MG TABLET PO SCH (18:18)
[2022-02-28] MEDS: VANCOMYCIN INJ 1,500 MG in SODIUM CHLORIDE 0.9% 500 ML IV SCH (18:28)
[2022-02-28] MEDS ORDERED: ATORVASTATIN 40 MG TABLET PO SCH (21:00)
[2022-02-28] MEDS ORDERED: DONEPEZIL 5 MG TABLET PO SCH (21:00)
[2022-03-01] MEDS: INSULIN LISPRO 100 UNIT/ML SUBCUT SCH ×3 (00:01→12:15)
[2022-03-01 06:24] LABS: Albumin 0.7 G/DL (3.4-5.0); Bilirubin,Total 0.5 MG/DL (0.20-1.00); Osmolality,Calculated 290.8 MOS/KG (273-304); Potassium 4.4 MMOL/L (3.5-5.1); Total Protein 5.3 G/DL (6.4-8.2)
[2022-03-01 06:25] LABS: Calcium 5.5 MG/DL (8.5-10.1)
[2022-03-01] MEDS: APIXABAN 2.5 MG TABLET PO SCH (08:44)
[2022-03-01] MEDS: carvediloL 3.125 MG TABLET PO SCH (08:44)
[2022-03-01] MEDS: ASPIRIN CHEW 81 MG TABLET PO SCH (08:44)
[2022-03-01] MEDS: DOCUSATE SODIUM 100 MG CAPSULE PO SCH (08:45)
[2022-03-01] MEDS ORDERED: ASCORBIC ACID 500 MG TABLET PO SCH (09:00)
[2022-03-01 09:41] LABS: Basophils % 0.2 % (0.0-0.8); Eosinophils # 0.2 10*3/uL (0.0-0.87); Eosinophils % 1.1 % (0.00-10.9); Hematocrit 26.9 VOL% (35.7-47.0); Hemoglobin 8.7 GM/DL (12.0-16.0); Immature Granulocytes % 0.9 %; Immature Granulocytes Absolute 0.15 #; Lymphocytes # 2.4 10*3/uL (1.4-4.0); Lymphocytes % 13.5 % (21.3-54.2); Mean Corpuscular HGB Conc 32.3 GM/DL (32-36); Mean Corpuscular Volume 85.9 FL (87-102); Mean Platelet Volume 9.1 FL (9.6-12.0); Monocytes % 5.7 % (1.7-12.7); Neutrophils % 78.6 % (38.7-73.9); Platelet Count 261 T/CUMM (130-400); Red Blood Count 3.13 MC/CUMM (3.8-5.5); Red Cell Distribution Width 17.9 % (9.3-17.3); White Blood Count 17.6 T/CUMM (4-12)
[2022-03-01] MEDS ORDERED: cefTRIAXone 2,000 MG in SODIUM CHLORIDE 0.9% 100 ML IV SCH (10:00)
[2022-03-01] MEDS: PANTOPRAZOLE 40 MG TABLET PO SCH (10:12)
[2022-03-01] MEDS: SODIUM BICARBONATE 650 MG TABLET PO SCH (10:22)
[2022-03-01 11:31] LABS: % Iron Saturation 111.8 % (18-50)
[2022-03-01] MEDS: DEXTROSE 5% 1,000 ML IV SCH (12:15)
[2022-03-01 16:40] VITALS: BP 97/55
[2022-03-02 23:06] LABS: CDT Specimen Source STOOL
[2022-03-03 08:31] LABS: CDT Result Positive (Negative)
== END 2022-03-01 16:45 | DRG 637 ==
LOC: SUATTDRO → EDBD → EDUNIT# → N.ED 11:57 → N.EDINP 15:58 → SUATTDRO 15:58 → N.3E 18:32
PROVIDERS: ADMIT Internal Medicine; ATTEND Internal Medicine

== ENCOUNTER 2022-03-03 11:45 | Inpatient (IN) ==
[2022-03-03 12:21] LABS: Basophils % 0.1 % (0.0-0.8); Eosinophils # 0.1 10*3/uL (0.0-0.87); Hematocrit 24.7 VOL% (35.7-47.0); Immature Granulocytes Absolute 0.13 #; Lymphocytes # 2.9 10*3/uL (1.4-4.0); Lymphocytes % 21.8 % (21.3-54.2); Mean Corpuscular HGB Conc 32.4 GM/DL (32-36); Mean Corpuscular Volume 86.4 FL (87-102); Mean Platelet Volume 9.7 FL (9.6-12.0); Monocytes % 7.1 % (1.7-12.7); Platelet Count 204 T/CUMM (130-400); Red Blood Count 2.86 MC/CUMM (3.8-5.5); White Blood Count 13.4 T/CUMM (4-12)
[2022-03-03 12:40] LABS: Alanine Aminotransferase 14 U/L (13-56); Albumin 0.8 G/DL (3.4-5.0); Alkaline Phosphatase 121 U/L (45-117); Aspartate Amino Transferase 12 U/L (0-37); Bilirubin,Total < 0.39 MG/DL (0.20-1.00); Blood Urea Nitrogen 26 MG/DL (7-18); Calcium 7.9 MG/DL (8.5-10.1); Carbon Dioxide 16 MMOL/L (21-32); Chloride 119 MMOL/L (98-107); Estimated Glom Filtration Rate 33 ML/MIN; Glucose 133 MG/DL (74-106); Osmolality,Calculated 294.7 MOS/KG (273-304); Potassium 2.7 MMOL/L (3.5-5.1); Sodium 145 MMOL/L (136-145); Total Protein 5.8 G/DL (6.4-8.2)
[2022-03-03 13:03] LABS: RBC,Urine 6889 /HPF (0-4)
[2022-03-03 13:04] LABS: Urine Appearance Clear (Clear); Urine Color Red (Yellow); Urine Specific Gravity 1.015 (1.001-1.035)
[2022-03-03 13:05] LABS: Bilirubin,Urine Large mg/dL (Negative); Blood, Urine Large mg/dL (Negative); Glucose,Urine (UA) Negative (Negative); Ketones,Urine 15 mg/dL (Negative); Nitrite,Urine Positive (Negative); Protein,Urine >=300 mg/dL (Negative)
[2022-03-03] MEDS ORDERED: CIPROFLOXACIN INJ 400 MG/200 ML PREMIX IV STA (13:54)
[2022-03-03] MEDS ORDERED: SODIUM CHLOR 0.9% KCL 40 MEQ 40 MEQ/1,000 ML BAG IV SCH (14:00)
[2022-03-03] MEDS ORDERED: ONDANSETRON 4 MG/2 ML VIAL IV PRN (14:18)
[2022-03-03] MEDS ORDERED: GLUCAGON 1 MG VIAL IM PRN (14:18)
[2022-03-03 14:21] LABS: INR 1.6; PT Patient Result 17.4 SECS (10.5-12.0)
[2022-03-03] MEDS ORDERED: DEXTROSE 10% 250 ML BAG IV PRN (14:28)
[2022-03-03] MEDS ORDERED: ENOXAPARIN 30 MG/0.3 ML SYRINGE SUBCUT SCH (14:30)
[2022-03-03] MEDS ORDERED: SODIUM CHLORIDE 0.9% 1,000 ML IV SCH (14:30)
[2022-03-03] MEDS ORDERED: MAGNESIUM SULF RIDER 2 GM/50 ML PREMIX IV PRN (14:50)
[2022-03-03] MEDS ORDERED: MAGNESIUM SULF RIDER 4 GM/100 ML PREMIX IV PRN (14:50)
[2022-03-03 14:56] LABS: Arterial Base Excess iSTAT -8 MMOL/L (-2.5-2.5); Arterial Bicarbonate iSTAT 14.9 MMOL/L (20-26); Arterial O2 Saturation iSTAT 99 % (95-100); Arterial PCO2 iSTAT 21 MM HG (35-48); Arterial PO2 iSTAT 119 MM HG (80-95); Arterial Total CO2 iSTAT 16 MMO/L (23-27); Arterial pH iSTAT 7.453 (7.35-7.45)
[2022-03-03] MEDS: INSULIN LISPRO 100 UNIT/ML SUBCUT SCH ×2 (19:37→22:17)
[2022-03-03] MEDS: POTASSIUM CHLORIDE 20 MEQ TABLET PO SCH (21:48)
[2022-03-03] MEDS: FIDAXOMICIN 200 MG TABLET PO SCH (21:48)
[2022-03-03] MEDS: cefTRIAXone 2,000 MG in SODIUM CHLORIDE 0.9% 100 ML IV SCH (21:49)
[2022-03-03 22:08] LABS: Hemoglobin 7.5 GM/DL (12.0-16.0)
[2022-03-04] MEDS: SODIUM BICARB INJ 100 MEQ in STERILE WATER INJ 1,000 ML IV SCH ×2 (01:27→17:53)
[2022-03-04] MEDS: POTASSIUM CHLORIDE 20 MEQ TABLET PO SCH ×2 (03:18→10:56)
[2022-03-04 06:40] LABS: Calcium 7.8 MG/DL (8.5-10.1); Osmolality,Calculated 293.6 MOS/KG (273-304)
[2022-03-04 06:50] LABS: Basophils % 0.2 % (0.0-0.8); Eosinophils # 0.2 10*3/uL (0.0-0.87); Eosinophils % 1.3 % (0.00-10.9); Hematocrit 21.4 VOL% (35.7-47.0); Hemoglobin 7.1 GM/DL (12.0-16.0); Immature Granulocytes % 2.1 %; Immature Granulocytes Absolute 0.25 #; Lymphocytes # 3.8 10*3/uL (1.4-4.0); Lymphocytes % 31.6 % (21.3-54.2); Mean Corpuscular HGB Conc 33.2 GM/DL (32-36); Mean Corpuscular Volume 83.6 FL (87-102); Mean Platelet Volume 10.2 FL (9.6-12.0); Monocytes # 1.4 10*3/uL (0.11-0.8); Monocytes % 11.5 % (1.7-12.7); Neutrophils % 53.3 % (38.7-73.9); Platelet Count 193 T/CUMM (130-400); Red Blood Count 2.56 MC/CUMM (3.8-5.5); Red Cell Distribution Width 18.1 % (9.3-17.3)
[2022-03-04 07:08] LABS: INR 1.5; PT Patient Result 16.5 SECS (10.5-12.0)
[2022-03-04] MEDS ORDERED: POTASSIUM CHLORIDE 20 MEQ TABLET PO ONE (09:05)
[2022-03-04] MEDS ORDERED: SODIUM CHLORIDE 0.9% 1,000 ML IV PRN (09:16)
[2022-03-04] MEDS: INSULIN LISPRO 100 UNIT/ML SUBCUT SCH ×4 (10:02→21:55)
[2022-03-04 10:47] LABS: Folate 11.02 NG/ML (5.38-24.0)
[2022-03-04] MEDS: PHYTONADIONE 5 MG/5 ML ORAL.SYR PO SCH (10:56)
[2022-03-04] MEDS: FIDAXOMICIN 200 MG TABLET PO SCH ×2 (10:56→22:00)
[2022-03-04 18:26] LABS: Hematocrit 28.9 VOL% (35.7-47.0); Hemoglobin 9.4 GM/DL (12.0-16.0)
[2022-03-04] MEDS: cefTRIAXone 2,000 MG in SODIUM CHLORIDE 0.9% 100 ML IV SCH (22:01)
[2022-03-04] MEDS: ENOXAPARIN 40 MG/0.4 ML SYRINGE SUBCUT SCH (22:01)
[2022-03-05 05:18] LABS: Basophils % 0.3 % (0.0-0.8); Eosinophils # 0.1 10*3/uL (0.0-0.87); Eosinophils % 0.9 % (0.00-10.9); Hemoglobin 9.5 GM/DL (12.0-16.0); Immature Granulocytes % 2.4 %; Immature Granulocytes Absolute 0.27 #; Lymphocytes # 3.4 10*3/uL (1.4-4.0); Lymphocytes % 29.6 % (21.3-54.2); Mean Corpuscular HGB Conc 32.8 GM/DL (32-36); Mean Corpuscular Volume 86.1 FL (87-102); Mean Platelet Volume 10.3 FL (9.6-12.0); Monocytes # 1.3 10*3/uL (0.11-0.8); Monocytes % 11.1 % (1.7-12.7); Neutrophils % 55.7 % (38.7-73.9); Platelet Count 171 T/CUMM (130-400); Red Blood Count 3.37 MC/CUMM (3.8-5.5); Red Cell Distribution Width 17.3 % (9.3-17.3); White Blood Count 11.5 T/CUMM (4-12)
[2022-03-05] MEDS: SODIUM BICARB INJ 100 MEQ in STERILE WATER INJ 1,000 ML IV SCH ×2 (05:20→15:37)
[2022-03-05 05:39] LABS: Calcium 7.2 MG/DL (8.5-10.1); Osmolality,Calculated 293.6 MOS/KG (273-304); Potassium 3.4 MMOL/L (3.5-5.1)
[2022-03-05] MEDS ORDERED: ERGOCALCIFEROL 50,000 UNIT CAPSULE PO SCH (09:00)
[2022-03-05] MEDS: INSULIN LISPRO 100 UNIT/ML SUBCUT SCH ×4 (11:04→21:00)
[2022-03-05] MEDS: PHYTONADIONE 5 MG/5 ML ORAL.SYR PO SCH (11:08)
[2022-03-05] MEDS: MAGNESIUM OXIDE 400 MG TABLET PO SCH (11:08)
[2022-03-05] MEDS: FIDAXOMICIN 200 MG TABLET PO SCH ×2 (13:28→22:26)
[2022-03-05 14:44] LABS: % Iron Saturation 45.5 % (18-50)
[2022-03-05] MEDS: ENOXAPARIN 40 MG/0.4 ML SYRINGE SUBCUT SCH (22:26)
[2022-03-05] MEDS: cefTRIAXone 2,000 MG in SODIUM CHLORIDE 0.9% 100 ML IV SCH (22:26)
[2022-03-06] MEDS: SODIUM BICARB INJ 100 MEQ in STERILE WATER INJ 1,000 ML IV SCH ×2 (03:15→14:49)
[2022-03-06 05:36] LABS: Basophils % 0.2 % (0.0-0.8); Eosinophils # 0.2 10*3/uL (0.0-0.87); Eosinophils % 1.3 % (0.00-10.9); Hematocrit 28.5 VOL% (35.7-47.0); Hemoglobin 9.4 GM/DL (12.0-16.0); Immature Granulocytes Absolute 0.24 #; Lymphocytes # 3.4 10*3/uL (1.4-4.0); Lymphocytes % 27.8 % (21.3-54.2); Mean Corpuscular Volume 85.6 FL (87-102); Mean Platelet Volume 10.9 FL (9.6-12.0); Monocytes # 1.3 10*3/uL (0.11-0.8); Monocytes % 10.3 % (1.7-12.7); Neutrophils % 58.4 % (38.7-73.9); Platelet Count 173 T/CUMM (130-400); Red Blood Count 3.33 MC/CUMM (3.8-5.5); Red Cell Distribution Width 17.4 % (9.3-17.3); White Blood Count 12.2 T/CUMM (4-12)
[2022-03-06 05:47] LABS: INR 1.3; PT Patient Result 14.5 SECS (10.5-12.0)
[2022-03-06 05:58] LABS: Osmolality,Calculated 289.7 MOS/KG (273-304)
[2022-03-06] MEDS: INSULIN LISPRO 100 UNIT/ML SUBCUT SCH ×3 (07:16→16:34)
[2022-03-06] MEDS: FIDAXOMICIN 200 MG TABLET PO SCH (08:57)
[2022-03-06] MEDS: PHYTONADIONE 5 MG/5 ML ORAL.SYR PO SCH (08:57)
[2022-03-06] MEDS: MAGNESIUM OXIDE 400 MG TABLET PO SCH (08:57)
[2022-03-06] MEDS ORDERED: VANCOMYCIN INJ 1,000 MG in SODIUM CHLORIDE 0.9% 250 ML IV ONE (09:02)
[2022-03-06] MEDS ORDERED: POTASSIUM CHLORIDE 20 MEQ TABLET PO ONE (09:30)
[2022-03-06] MEDS ORDERED: MAGNESIUM SULF RIDER 2 GM/50 ML PREMIX IV ONE (09:30)
[2022-03-06] MEDS: cefTRIAXone 1,000 MG in SODIUM CHLORIDE 0.9% 100 ML IV SCH (14:20)
[2022-03-06] MEDS: VANCOMYCIN INJ 1,500 MG in SODIUM CHLORIDE 0.9% 500 ML IV SCH (15:18)
[2022-03-06] MEDS: ENOXAPARIN 40 MG/0.4 ML SYRINGE SUBCUT SCH (22:45)
[2022-03-07] MEDS: SODIUM BICARB INJ 100 MEQ in STERILE WATER INJ 1,000 ML IV SCH ×2 (01:30→19:36)
[2022-03-07] MEDS: VANCOMYCIN INJ 1,500 MG in SODIUM CHLORIDE 0.9% 500 ML IV SCH ×2 (04:15→17:36)
[2022-03-07 05:19] LABS: Basophils % 0.3 % (0.0-0.8); Eosinophils # 0.1 10*3/uL (0.0-0.87); Eosinophils % 1.2 % (0.00-10.9); Hematocrit 32.3 VOL% (35.7-47.0); Hemoglobin 10.8 GM/DL (12.0-16.0); Immature Granulocytes % 1.5 %; Immature Granulocytes Absolute 0.17 #; Lymphocytes # 2.6 10*3/uL (1.4-4.0); Mean Corpuscular HGB Conc 33.4 GM/DL (32-36); Mean Corpuscular Volume 85.2 FL (87-102); Mean Platelet Volume 11.2 FL (9.6-12.0); Monocytes # 0.9 10*3/uL (0.11-0.8); Monocytes % 8.5 % (1.7-12.7); Neutrophils % 64.5 % (38.7-73.9); Platelet Count 162 T/CUMM (130-400); Red Blood Count 3.79 MC/CUMM (3.8-5.5); Red Cell Distribution Width 17.3 % (9.3-17.3)
[2022-03-07 05:36] LABS: Calcium 6.9 MG/DL (8.5-10.1); Osmolality,Calculated 290.7 MOS/KG (273-304); Potassium 2.7 MMOL/L (3.5-5.1)
[2022-03-07] MEDS: FIDAXOMICIN 200 MG TABLET PO SCH ×3 (05:39→21:59)
[2022-03-07] MEDS: INSULIN LISPRO 100 UNIT/ML SUBCUT SCH ×5 (05:45→21:00)
[2022-03-07] MEDS: MAGNESIUM OXIDE 400 MG TABLET PO SCH (09:11)
[2022-03-07] MEDS: POTASSIUM CHLORIDE 20 MEQ TABLET PO PRN ×2 (09:11→13:02)
[2022-03-07] MEDS ORDERED: POTASSIUM CHLORIDE 20 MEQ TABLET PO ONE (13:18)
[2022-03-07] MEDS ORDERED: SODIUM CHLORIDE 0.9% 1,000 ML IV SCH (13:30)
[2022-03-07] MEDS: cefTRIAXone 1,000 MG in SODIUM CHLORIDE 0.9% 100 ML IV SCH (15:01)
[2022-03-07] MEDS: ENOXAPARIN 40 MG/0.4 ML SYRINGE SUBCUT SCH (22:00)
[2022-03-08] MEDS: VANCOMYCIN INJ 1,500 MG in SODIUM CHLORIDE 0.9% 500 ML IV SCH (04:13)
[2022-03-08 05:17] LABS: Basophils % 0.3 % (0.0-0.8); Eosinophils # 0.2 10*3/uL (0.0-0.87); Eosinophils % 1.2 % (0.00-10.9); Hematocrit 27.2 VOL% (35.7-47.0); Hemoglobin 8.7 GM/DL (12.0-16.0); Immature Granulocytes % 1.4 %; Lymphocytes # 3.2 10*3/uL (1.4-4.0); Lymphocytes % 22.6 % (21.3-54.2); Mean Corpuscular Volume 86.6 FL (87-102); Mean Platelet Volume 11.2 FL (9.6-12.0); Monocytes # 1.4 10*3/uL (0.11-0.8); Monocytes % 9.9 % (1.7-12.7); Neutrophils % 64.6 % (38.7-73.9); Platelet Count 175 T/CUMM (130-400); Red Blood Count 3.14 MC/CUMM (3.8-5.5); Red Cell Distribution Width 17.9 % (9.3-17.3); White Blood Count 14.1 T/CUMM (4-12)
[2022-03-08 05:35] LABS: Osmolality,Calculated 290.8 MOS/KG (273-304); Phosphorous 2.6 MG/DL (2.5-4.9); Potassium 3.1 MMOL/L (3.5-5.1)
[2022-03-08 05:44] LABS: Calcium 6.5 MG/DL (8.5-10.1); Osmolality,Calculated 292.6 MOS/KG (273-304); Potassium 3.3 MMOL/L (3.5-5.1)
[2022-03-08] MEDS: INSULIN LISPRO 100 UNIT/ML SUBCUT SCH ×2 (09:31→13:07)
[2022-03-08] MEDS: FIDAXOMICIN 200 MG TABLET PO SCH (09:32)
[2022-03-08] MEDS: MAGNESIUM OXIDE 400 MG TABLET PO SCH (09:33)
[2022-03-08] MEDS ORDERED: POTASSIUM CHLORIDE 20 MEQ TABLET PO ONE (11:05)
[2022-03-08 11:43] VITALS: BP 103/69
[2022-03-08] MEDS ORDERED: LINEZOLID 600 MG TABLET PO SCH (21:00)
== END 2022-03-08 14:55 | DRG 371 ==
LOC: EDUNIT# → N.ED 11:45 → SUATTDRO 14:18 → N.EDINP 14:18 → N.5E 16:31
PROVIDERS: ADMIT Internal Medicine; ATTEND Internal Medicine

== ENCOUNTER 2022-03-29 11:43 | Inpatient (IN) ==
[2022-03-29 13:08] LABS: Basophils # 0.1 10*3/uL (0.0-0.2); Basophils % 0.5 % (0.0-0.8); Eosinophils # 0.4 10*3/uL (0.0-0.87); Eosinophils % 2.4 % (0.00-10.9); Hematocrit 25.2 VOL% (35.7-47.0); Hemoglobin 7.5 GM/DL (12.0-16.0); Immature Granulocytes % 1.9 %; Immature Granulocytes Absolute 0.28 #; Lymphocytes # 3.5 10*3/uL (1.4-4.0); Mean Corpuscular HGB Conc 29.8 GM/DL (32-36); Mean Corpuscular Volume 96.9 FL (87-102); Mean Platelet Volume 10.1 FL (9.6-12.0); Monocytes # 1.9 10*3/uL (0.11-0.8); Monocytes % 13.1 % (1.7-12.7); NRBC # 0.04 10*3/uL; Neutrophils % 58.1 % (38.7-73.9); Platelet Count 392 T/CUMM (130-400); White Blood Count 14.4 T/CUMM (4-12)
[2022-03-29 13:20] LABS: INR 1.3; PT Patient Result 13.7 SECS (10.5-12.0); Partial Thromboplastin Time 39.2 SECS (23.8-32.1)
[2022-03-29 13:30] LABS: Alanine Aminotransferase 22 U/L (13-56); Albumin 0.9 G/DL (3.4-5.0); Alkaline Phosphatase 121 U/L (45-117); Aspartate Amino Transferase 16 U/L (0-37); Bilirubin,Total < 0.39 MG/DL (0.20-1.00); Blood Urea Nitrogen 63 MG/DL (7-18); Calcium 8.3 MG/DL (8.5-10.1); Carbon Dioxide 17 MMOL/L (21-32); Chloride 129 MMOL/L (98-107); Glucose 69 MG/DL (74-106); Potassium 3.8 MMOL/L (3.5-5.1); Sodium 157 MMOL/L (136-145)
[2022-03-29 13:36] LABS: Bacteria,Urine Many /HPF (Few); Glucose,Urine (UA) Negative (Negative); Ketones,Urine Negative (Negative); Nitrite,Urine Negative (Negative); Protein,Urine 300 mg/dL (Negative); RBC,Urine 13653 /HPF (0-4); Urine Appearance Turbid (Clear); Urine Color Red (Yellow); Urine Specific Gravity 1.025 (1.001-1.035)
[2022-03-29 13:37] LABS: Bilirubin,Urine Negative (Negative); Blood, Urine Large mg/dL (Negative); Urine Urobilinogen 0.2 eU/dL (<2.0)
[2022-03-29] MEDS ORDERED: GLUCAGON 1 MG VIAL IM PRN (14:02)
[2022-03-29] MEDS ORDERED: ONDANSETRON 4 MG/2 ML VIAL IV PRN (14:02)
[2022-03-29] MEDS ORDERED: DOCUSATE SODIUM 100 MG CAPSULE PO PRN (14:02)
[2022-03-29] MEDS ORDERED: DEXTROSE 10% 250 ML BAG IV PRN (14:10)
[2022-03-29] MEDS ORDERED: SODIUM CHLORIDE 0.45% 1,000 ML IV SCH (14:30)
[2022-03-29] MEDS: MEROPENEM 500 MG in SODIUM CHLORIDE 0.9% 100 ML IV SCH ×2 (16:58→21:06)
[2022-03-29] MEDS: SODIUM BICARB INJ 100 MEQ in SODIUM CHLORIDE 0.45% 1,000 ML IV SCH (18:15)
[2022-03-30] MEDS: SODIUM BICARB INJ 100 MEQ in SODIUM CHLORIDE 0.45% 1,000 ML IV SCH ×2 (04:34→15:12)
[2022-03-30 05:55] LABS: Basophils % 0.4 % (0.0-0.8); Eosinophils # 0.2 10*3/uL (0.0-0.87); Hematocrit 24.4 VOL% (35.7-47.0); Hemoglobin 7.5 GM/DL (12.0-16.0); Immature Granulocytes Absolute 0.22 #; Lymphocytes # 2.6 10*3/uL (1.4-4.0); Lymphocytes % 22.8 % (21.3-54.2); Mean Corpuscular HGB Conc 30.7 GM/DL (32-36); Mean Corpuscular Volume 93.5 FL (87-102); Mean Platelet Volume 10.3 FL (9.6-12.0); Monocytes # 1.2 10*3/uL (0.11-0.8); Monocytes % 10.2 % (1.7-12.7); NRBC # 0.03 10*3/uL; Neutrophils % 62.6 % (38.7-73.9); Platelet Count 377 T/CUMM (130-400); Red Blood Count 2.61 MC/CUMM (3.8-5.5); Red Cell Distribution Width 21.7 % (9.3-17.3); White Blood Count 11.2 T/CUMM (4-12)
[2022-03-30 06:02] LABS: Phosphorous 4.6 MG/DL (2.5-4.9)
[2022-03-30 06:04] LABS: Calcium 8.3 MG/DL (8.5-10.1); Osmolality,Calculated 327.2 MOS/KG (273-304); Potassium 3.8 MMOL/L (3.5-5.1)
[2022-03-30] MEDS: MEROPENEM 500 MG in SODIUM CHLORIDE 0.9% 100 ML IV SCH ×2 (08:50→21:38)
[2022-03-30] MEDS ORDERED: ZINC OXIDE 16% PASTE 57 GM TUBE TOP PRN (11:50)
[2022-03-30 12:21] LABS: RBC,Urine 18546 /HPF (0-4)
[2022-03-30 12:22] LABS: Bilirubin,Urine Moderate mg/dL (Negative); Blood, Urine Large mg/dL (Negative); Glucose,Urine (UA) Negative (Negative); Ketones,Urine Trace mg/dL (Negative); Nitrite,Urine Positive (Negative); Protein,Urine >=300 mg/dL (Negative); Urine Appearance Cloudy (Clear); Urine Color Red (Yellow); Urine Specific Gravity 1.015 (1.001-1.035)
[2022-03-30 13:11] LABS: Barbiturates Screen,Urine Negative (Negative); Benzodiazepines Screen,Urine Negative (Negative); Cannabinoid Screen,Urine Negative (Negative); Opiate Screen,Urine Negative (Negative); Phencyclidine Screen,Urine Negative (Negative)
[2022-03-31] MEDS: SODIUM BICARB INJ 100 MEQ in SODIUM CHLORIDE 0.45% 1,000 ML IV SCH (04:12)
[2022-03-31 07:00] LABS: Basophils % 0.3 % (0.0-0.8); Eosinophils # 0.4 10*3/uL (0.0-0.87); Eosinophils % 3.3 % (0.00-10.9); Hemoglobin 7.1 GM/DL (12.0-16.0); Immature Granulocytes Absolute 0.23 #; Lymphocytes # 3.7 10*3/uL (1.4-4.0); Lymphocytes % 31.7 % (21.3-54.2); Mean Corpuscular HGB Conc 30.9 GM/DL (32-36); Mean Corpuscular Volume 92.4 FL (87-102); Mean Platelet Volume 9.8 FL (9.6-12.0); Monocytes # 1.6 10*3/uL (0.11-0.8); Monocytes % 13.7 % (1.7-12.7); NRBC # 0.04 10*3/uL; Platelet Count 368 T/CUMM (130-400); Red Blood Count 2.49 MC/CUMM (3.8-5.5); Red Cell Distribution Width 22.2 % (9.3-17.3); White Blood Count 11.5 T/CUMM (4-12)
[2022-03-31 07:19] LABS: Calcium 8.1 MG/DL (8.5-10.1); Osmolality,Calculated 328.2 MOS/KG (273-304); Potassium 3.9 MMOL/L (3.5-5.1)
[2022-03-31] MEDS: MEROPENEM 500 MG in SODIUM CHLORIDE 0.9% 100 ML IV SCH (08:51)
[2022-03-31] MEDS: DEXTROSE 5% 1,000 ML IV SCH (11:51)
[2022-03-31] MEDS ORDERED: SODIUM CHLORIDE 0.9% 1,000 ML IV PRN ×2 (14:43)
[2022-03-31 14:56] LABS: % Iron Saturation 55.7 % (18-50)
[2022-03-31] MEDS ORDERED: SODIUM CHLORIDE 0.9% 100 ML IV ONE (15:41)
[2022-03-31] MEDS: cefTRIAXone 1,000 MG VIAL IV SCH (15:56)
[2022-03-31] MEDS: carvediloL 3.125 MG TABLET PO SCH (21:52)
[2022-03-31] MEDS: DONEPEZIL 5 MG TABLET PO SCH (21:52)
[2022-04-01] MEDS: MEROPENEM 500 MG in SODIUM CHLORIDE 0.9% 100 ML IV SCH ×3 (03:02→23:04)
[2022-04-01 05:15] LABS: Basophils # 0.1 10*3/uL (0.0-0.2); Basophils % 0.6 % (0.0-0.8); Eosinophils # 0.4 10*3/uL (0.0-0.87); Eosinophils % 3.3 % (0.00-10.9); Hematocrit 32.9 VOL% (35.7-47.0); Hemoglobin 10.4 GM/DL (12.0-16.0); Immature Granulocytes Absolute 0.21 #; Lymphocytes # 2.7 10*3/uL (1.4-4.0); Lymphocytes % 25.6 % (21.3-54.2); Mean Corpuscular HGB Conc 31.6 GM/DL (32-36); Mean Corpuscular Volume 92.4 FL (87-102); Mean Platelet Volume 9.7 FL (9.6-12.0); Monocytes # 1.4 10*3/uL (0.11-0.8); Monocytes % 12.8 % (1.7-12.7); NRBC # 0.04 10*3/uL; Neutrophils % 55.7 % (38.7-73.9); Platelet Count 339 T/CUMM (130-400); Red Blood Count 3.56 MC/CUMM (3.8-5.5); Red Cell Distribution Width 19.4 % (9.3-17.3); White Blood Count 10.7 T/CUMM (4-12)
[2022-04-01 05:29] LABS: Calcium 7.8 MG/DL (8.5-10.1); Osmolality,Calculated 323.4 MOS/KG (273-304); Potassium 3.8 MMOL/L (3.5-5.1)
[2022-04-01] MEDS: PANTOPRAZOLE 40 MG TABLET PO SCH (06:19)
[2022-04-01] MEDS: MULTIVITAMIN (CENTRUM) TABLET PO SCH (09:01)
[2022-04-01] MEDS: carvediloL 3.125 MG TABLET PO SCH ×2 (09:01→23:06)
[2022-04-01] MEDS: ASCORBIC ACID 500 MG TABLET PO SCH (09:01)
[2022-04-01] MEDS: ATORVASTATIN 40 MG TABLET PO SCH (09:01)
[2022-04-01] MEDS ORDERED: SODIUM CHLORIDE 0.9% 100 ML IV ONE (15:01)
[2022-04-01] MEDS: cefTRIAXone 1,000 MG VIAL IV SCH (15:08)
[2022-04-01] MEDS: DEXTROSE 5% 1,000 ML IV SCH ×2 (16:26→16:49)
[2022-04-01] MEDS: DONEPEZIL 5 MG TABLET PO SCH (23:05)
[2022-04-02 05:14] LABS: Basophils # 0.1 10*3/uL (0.0-0.2); Basophils % 0.4 % (0.0-0.8); Eosinophils # 0.4 10*3/uL (0.0-0.87); Eosinophils % 3.5 % (0.00-10.9); Hematocrit 36.4 VOL% (35.7-47.0); Hemoglobin 11.5 GM/DL (12.0-16.0); Immature Granulocytes % 1.8 %; Immature Granulocytes Absolute 0.22 #; Lymphocytes # 3.4 10*3/uL (1.4-4.0); Lymphocytes % 28.5 % (21.3-54.2); Mean Corpuscular HGB Conc 31.6 GM/DL (32-36); Mean Corpuscular Volume 93.6 FL (87-102); Mean Platelet Volume 10.4 FL (9.6-12.0); Monocytes # 1.5 10*3/uL (0.11-0.8); Monocytes % 12.6 % (1.7-12.7); NRBC # 0.04 10*3/uL; Neutrophils % 53.2 % (38.7-73.9); Platelet Count 354 T/CUMM (130-400); Red Blood Count 3.89 MC/CUMM (3.8-5.5); Red Cell Distribution Width 20.2 % (9.3-17.3)
[2022-04-02 05:42] LABS: Calcium 8.3 MG/DL (8.5-10.1); Osmolality,Calculated 314.1 MOS/KG (273-304); Potassium 4.1 MMOL/L (3.5-5.1)
[2022-04-02] MEDS: DEXTROSE 5% 1,000 ML IV SCH (05:59)
[2022-04-02] MEDS: PANTOPRAZOLE 40 MG TABLET PO SCH (06:03)
[2022-04-02] MEDS: ASCORBIC ACID 500 MG TABLET PO SCH (09:40)
[2022-04-02] MEDS: ATORVASTATIN 40 MG TABLET PO SCH (09:40)
[2022-04-02] MEDS: FOLIC ACID 1 MG TABLET PO SCH (09:40)
[2022-04-02] MEDS: MULTIVITAMIN (CENTRUM) TABLET PO SCH (09:40)
[2022-04-02] MEDS: FERROUS SULFATE 325 MG TABLET PO SCH (09:40)
[2022-04-02] MEDS: carvediloL 3.125 MG TABLET PO SCH ×2 (09:40→20:44)
[2022-04-02] MEDS: MEROPENEM 500 MG in SODIUM CHLORIDE 0.9% 100 ML IV SCH (09:46)
[2022-04-02] MEDS: LINEZOLID INJ 600 MG/300 ML PREMIX IV SCH ×2 (12:55→20:44)
[2022-04-02] MEDS: cefTRIAXone 1,000 MG in SODIUM CHLORIDE 0.9% 100 ML IV SCH (15:53)
[2022-04-02] MEDS: DONEPEZIL 5 MG TABLET PO SCH (20:44)
[2022-04-03] MEDS: PANTOPRAZOLE 40 MG TABLET PO SCH (05:36)
[2022-04-03] MEDS: DEXTROSE 5% 1,000 ML IV SCH ×2 (05:36→16:36)
[2022-04-03 06:28] LABS: Basophils % 0.3 % (0.0-0.8); Eosinophils # 0.4 10*3/uL (0.0-0.87); Hematocrit 34.5 VOL% (35.7-47.0); Hemoglobin 11.1 GM/DL (12.0-16.0); Immature Granulocytes % 1.4 %; Immature Granulocytes Absolute 0.18 #; Lymphocytes # 3.5 10*3/uL (1.4-4.0); Lymphocytes % 27.8 % (21.3-54.2); Mean Corpuscular HGB Conc 32.2 GM/DL (32-36); Mean Corpuscular Volume 93.2 FL (87-102); Mean Platelet Volume 9.9 FL (9.6-12.0); Monocytes # 1.4 10*3/uL (0.11-0.8); Monocytes % 10.8 % (1.7-12.7); NRBC # 0.02 10*3/uL; Neutrophils % 56.7 % (38.7-73.9); Platelet Count 301 T/CUMM (130-400); Red Cell Distribution Width 20.1 % (9.3-17.3); White Blood Count 12.5 T/CUMM (4-12)
[2022-04-03 06:43] LABS: Osmolality,Calculated 310.4 MOS/KG (273-304); Potassium 3.8 MMOL/L (3.5-5.1)
[2022-04-03] MEDS: MULTIVITAMIN (CENTRUM) TABLET PO SCH (09:15)
[2022-04-03] MEDS: carvediloL 3.125 MG TABLET PO SCH ×2 (09:16→21:29)
[2022-04-03] MEDS: ASCORBIC ACID 500 MG TABLET PO SCH (09:16)
[2022-04-03] MEDS: FERROUS SULFATE 325 MG TABLET PO SCH (09:16)
[2022-04-03] MEDS: ATORVASTATIN 40 MG TABLET PO SCH (09:16)
[2022-04-03] MEDS: FOLIC ACID 1 MG TABLET PO SCH (09:16)
[2022-04-03] MEDS: LINEZOLID INJ 600 MG/300 ML PREMIX IV SCH ×2 (09:17→21:32)
[2022-04-03] MEDS: cefTRIAXone 1,000 MG in SODIUM CHLORIDE 0.9% 100 ML IV SCH (16:36)
[2022-04-03] MEDS: DONEPEZIL 5 MG TABLET PO SCH (21:29)
[2022-04-04] MEDS: PANTOPRAZOLE 40 MG TABLET PO SCH (06:19)
[2022-04-04 08:37] LABS: Basophils # 0.1 10*3/uL (0.0-0.2); Basophils % 0.4 % (0.0-0.8); Eosinophils # 0.4 10*3/uL (0.0-0.87); Eosinophils % 3.3 % (0.00-10.9); Hematocrit 36.8 VOL% (35.7-47.0); Hemoglobin 11.6 GM/DL (12.0-16.0); Immature Granulocytes % 1.6 %; Lymphocytes # 3.9 10*3/uL (1.4-4.0); Lymphocytes % 30.7 % (21.3-54.2); Mean Corpuscular HGB Conc 31.5 GM/DL (32-36); Mean Corpuscular Volume 93.6 FL (87-102); Mean Platelet Volume 10.1 FL (9.6-12.0); Monocytes # 1.4 10*3/uL (0.11-0.8); Monocytes % 10.6 % (1.7-12.7); NRBC # 0.02 10*3/uL; Neutrophils % 53.4 % (38.7-73.9); Platelet Count 260 T/CUMM (130-400); Red Blood Count 3.93 MC/CUMM (3.8-5.5); Red Cell Distribution Width 19.7 % (9.3-17.3); White Blood Count 12.8 T/CUMM (4-12)
[2022-04-04 08:56] LABS: Osmolality,Calculated 296.4 MOS/KG (273-304); Potassium 4.3 MMOL/L (3.5-5.1)
[2022-04-04] MEDS: carvediloL 3.125 MG TABLET PO SCH ×2 (09:20→22:36)
[2022-04-04] MEDS: ASCORBIC ACID 500 MG TABLET PO SCH (09:20)
[2022-04-04] MEDS: MULTIVITAMIN (CENTRUM) TABLET PO SCH (09:20)
[2022-04-04] MEDS: FOLIC ACID 1 MG TABLET PO SCH (09:20)
[2022-04-04] MEDS: ATORVASTATIN 40 MG TABLET PO SCH (09:20)
[2022-04-04] MEDS: FERROUS SULFATE 325 MG TABLET PO SCH (09:20)
[2022-04-04] MEDS: DEXTROSE 5% 1,000 ML IV SCH (09:22)
[2022-04-04] MEDS: LINEZOLID INJ 600 MG/300 ML PREMIX IV SCH ×2 (09:27→22:36)
[2022-04-04] MEDS: ERGOCALCIFEROL 50,000 UNIT CAPSULE PO SCH ×2 (14:41→14:44)
[2022-04-04] MEDS: cefTRIAXone 1,000 MG in SODIUM CHLORIDE 0.9% 100 ML IV SCH (16:17)
[2022-04-04] MEDS: DONEPEZIL 5 MG TABLET PO SCH (22:36)
[2022-04-05] MEDS: PANTOPRAZOLE 40 MG TABLET PO SCH (06:44)
[2022-04-05 07:09] LABS: Basophils % 0.4 % (0.0-0.8); Eosinophils # 0.5 10*3/uL (0.0-0.87); Eosinophils % 4.1 % (0.00-10.9); Hematocrit 32.7 VOL% (35.7-47.0); Hemoglobin 10.6 GM/DL (12.0-16.0); Immature Granulocytes % 1.4 %; Immature Granulocytes Absolute 0.16 #; Lymphocytes # 3.6 10*3/uL (1.4-4.0); Lymphocytes % 32.6 % (21.3-54.2); Mean Corpuscular HGB Conc 32.4 GM/DL (32-36); Mean Corpuscular Volume 92.4 FL (87-102); Mean Platelet Volume 9.8 FL (9.6-12.0); Monocytes # 1.1 10*3/uL (0.11-0.8); Monocytes % 10.3 % (1.7-12.7); Neutrophils % 51.2 % (38.7-73.9); Platelet Count 234 T/CUMM (130-400); Red Blood Count 3.54 MC/CUMM (3.8-5.5); Red Cell Distribution Width 19.2 % (9.3-17.3)
[2022-04-05 07:25] LABS: Calcium 7.9 MG/DL (8.5-10.1); Osmolality,Calculated 291.5 MOS/KG (273-304); Potassium 3.8 MMOL/L (3.5-5.1)
[2022-04-05] MEDS: LINEZOLID INJ 600 MG/300 ML PREMIX IV SCH (08:50)
[2022-04-05] MEDS: ATORVASTATIN 40 MG TABLET PO SCH (08:51)
[2022-04-05] MEDS: carvediloL 3.125 MG TABLET PO SCH (08:51)
[2022-04-05] MEDS: FOLIC ACID 1 MG TABLET PO SCH (08:51)
[2022-04-05] MEDS: FERROUS SULFATE 325 MG TABLET PO SCH (08:51)
[2022-04-05] MEDS: MULTIVITAMIN (CENTRUM) TABLET PO SCH (08:51)
[2022-04-05] MEDS: ASCORBIC ACID 500 MG TABLET PO SCH (08:51)
[2022-04-05 11:56] VITALS: BP 112/75
== END 2022-04-05 15:45 | DRG 689 ==
LOC: N.EDINP 11:43 → N.ED 11:43 → SUATTDRO 13:57 → N.5E 16:50
PROVIDERS: ADMIT Hospitalist; ATTEND Internal Medicine